=== PATIENT | male | born 1975 | race Caucasian/White ===

== ENCOUNTER 2022-12-20 11:58 | Inpatient (IN) | payer OTHER ==
[2022-12-20 12:41] VITALS: BMI 36.4
[2022-12-20] MEDS ORDERED: TRIMETHOBENZAMIDE HCL 200MG/2ML INJ IM ONE (12:43)
[2022-12-20] MEDS ORDERED: NALOXONE HCL 0.4 MG/ML VIAL IM PRN (13:13)
[2022-12-20] MEDS ORDERED: IBUPROFEN 400 MG TABLET (FP) PO PRN (13:13)
[2022-12-20] MEDS ORDERED: NALOXONE HCL (KLOXXADO) 8 MG SPRAY NS PRN (13:13)
[2022-12-20] MEDS ORDERED: guaiFENesin 600 MG TABLET.ER (FP) PO PRN (13:13)
[2022-12-20] MEDS ORDERED: BENZONATATE 200 MG CAPSULE PO PRN (13:13)
[2022-12-20] MEDS ORDERED: ACETAMINOPHEN 325 MG TABLET (FP) PO PRN (13:13)
[2022-12-20] MEDS ORDERED: DICYCLOMINE HCL 10 MG CAPSULE PO PRN (13:13)
[2022-12-20] MEDS ORDERED: BISMUTH SUBSALICYLATE 524 MG/30 ML PO PRN (13:13)
[2022-12-20] MEDS ORDERED: MAG HYDROX/AL HYDROX/SIMETH 30 ML UNIT-DOSE CUP PO PRN (13:13)
[2022-12-20] MEDS ORDERED: BENZOCAINE/MENTHOL (CHLORASEPTIC ) LOZENGE MM PRN (13:13)
[2022-12-20] MEDS ORDERED: MAGNESIUM HYDROX 2400MG/30ML ORAL SUSPENSION 30 ML CUP PO PRN (13:13)
[2022-12-20] MEDS ORDERED: POLYETHYLENE GLYCOL (HEALTHYLAX) 3350 17 GM PACKET PO PRN (13:13)
[2022-12-20] MEDS ORDERED: IBUPROFEN 600 MG TABLET (FP) PO PRN (13:13)
[2022-12-20] MEDS ORDERED: P-EPHED 60MG/TRIPROLIDI 2.5MG TABLET PO PRN (13:13)
[2022-12-20] MEDS ORDERED: METOPROLOL TARTRATE 25 MG TABLET (FP) PO ONE (13:15)
[2022-12-20] MEDS ORDERED: chlordiazePOXIDE HCL 25 MG CAPSULE PO PRN (13:16)
[2022-12-20] MEDS ORDERED: chlordiazePOXIDE HCL 25 MG CAPSULE PO ONE (13:16)
[2022-12-20] MEDS ORDERED: METOPROLOL TARTRATE 25 MG TABLET (FP) ONE (13:39)
[2022-12-20] MEDS ORDERED: chlordiazePOXIDE HCL 25 MG CAPSULE ONE (13:39)
[2022-12-20] MEDS: chlordiazePOXIDE HCL 25 MG CAPSULE PO SCH (16:58)
[2022-12-21] MEDS: THIAMINE HCL 100 MG TABLET (FP) PO SCH ×2 (04:58→22:03)
[2022-12-21] MEDS: chlordiazePOXIDE HCL 25 MG CAPSULE PO SCH ×5 (04:59→22:02)
[2022-12-21] MEDS ORDERED: chlordiazePOXIDE HCL 25 MG CAPSULE PO ONE (06:13)
[2022-12-21] MEDS: hydrOXYzine PAMOATE 25 MG CAPSULE (FP) PO PRN ×2 (06:30→21:06)
[2022-12-21] MEDS: PRENATAL VITAMINS W/ FOLIC ACID TABLET (FP) PO SCH (10:29)
[2022-12-21 11:28] LABS: HEMATOCRIT 37.6 % (35.4-49); HEMOGLOBIN 12.9 GM/dL (11.7-16.9); MCH 29.5 pg (25.7-33.7); MCHC 34.3 g/dl (32.0-35.9); MEAN PLT VOLUME 7.8 fl (7.5-11.1); PLATELET COUNT 188 10^3/uL (134-434); RBC 4.37 M/mm3 (4.00-5.60); RDW 14.8 % (11.9-15.9); WHITE BLOOD COUNT 6.4 K/mm3 (4.0-10.0)
[2022-12-21 11:34] LABS: POTASSIUM 3.5 mmol/L (3.5-5.1)
[2022-12-21 11:37] LABS: CALCIUM 8.8 mg/dL (8.5-10.1)
[2022-12-21 11:38] LABS: ALBUMIN 3.2 g/dl (3.4-5.0); BLOOD UREA NITROGEN 6.1 mg/dL (7-18)
[2022-12-21 11:41] LABS: CREATININE 0.8 mg/dL (0.55-1.3)
[2022-12-21 11:42] LABS: BILIRUBIN,TOTAL 1.1 mg/dL (0.2-1)
[2022-12-21 11:43] LABS: TOT PROT 6.7 g/dl (6.4-8.2)
[2022-12-21] MEDS: metFORMIN HCL 500 MG TABLET (FP) PO SCH (17:23)
[2022-12-21] MEDS: INSULIN SLIDING SCALE (NOVOLOG) 1 VIAL SQ SCH ×2 (17:27→22:01)
[2022-12-21] MEDS: LOPERAMIDE HCL 2 MG CAPSULE PO PRN (22:02)
[2022-12-21] MEDS: MELATONIN 5 MG TABLETS PO PRN (22:03)
[2022-12-22] MEDS: chlordiazePOXIDE HCL 25 MG CAPSULE PO SCH ×4 (05:42→22:14)
[2022-12-22] MEDS: metFORMIN HCL 500 MG TABLET (FP) PO SCH ×2 (06:34→17:39)
[2022-12-22] MEDS ORDERED: LOSARTAN 50MG/HCTZ 12.5MG 1 TAB PO SCH (10:00)
[2022-12-22] MEDS: lamoTRIgine 100 MG TABLET PO SCH (10:32)
[2022-12-22] MEDS: PRENATAL VITAMINS W/ FOLIC ACID TABLET (FP) PO SCH (10:32)
[2022-12-22] MEDS: hydrOXYzine PAMOATE 25 MG CAPSULE (FP) PO PRN (10:32)
[2022-12-22] MEDS: VENLAFAXINE HCL 50 MG TABLET PO SCH ×2 (10:33→22:13)
[2022-12-22] MEDS: amLODIPine BESYLATE 5 MG TABLET (FP) PO SCH (10:33)
[2022-12-22] MEDS: ONDANSETRON *ODT* 4 MG TABLET SL PRN (10:37)
[2022-12-22] MEDS: LOPERAMIDE HCL 2 MG CAPSULE PO PRN (10:38)
[2022-12-22] MEDS: HYDROCHLOROTHIAZIDE 12.5 MG CAPSULE (FP) PO SCH (10:57)
[2022-12-22] MEDS: LOSARTAN POTASSIUM 50 MG TABLET PO SCH (10:57)
[2022-12-22] MEDS ORDERED: INSULIN (NOVOLOG) ASPART 100 UNITS/ML 10ML VIAL ONE ×2 (11:32→17:16)
[2022-12-22] MEDS: INSULIN SLIDING SCALE (NOVOLOG) 1 VIAL SQ SCH ×3 (11:35→22:15)
[2022-12-22] MEDS: THIAMINE HCL 100 MG TABLET (FP) PO SCH (22:12)
[2022-12-22] MEDS: MELATONIN 5 MG TABLETS PO PRN (22:16)
[2022-12-23] MEDS ORDERED: chlordiazePOXIDE HCL 10 MG CAPSULE PO PRN
[2022-12-23] MEDS: chlordiazePOXIDE HCL 10 MG CAPSULE PO SCH ×4 (05:26→22:24)
[2022-12-23] MEDS: metFORMIN HCL 500 MG TABLET (FP) PO SCH ×2 (06:16→17:10)
[2022-12-23] MEDS: lamoTRIgine 100 MG TABLET PO SCH (10:03)
[2022-12-23] MEDS: HYDROCHLOROTHIAZIDE 12.5 MG CAPSULE (FP) PO SCH (10:03)
[2022-12-23] MEDS: amLODIPine BESYLATE 5 MG TABLET (FP) PO SCH (10:04)
[2022-12-23] MEDS: VENLAFAXINE HCL 50 MG TABLET PO SCH ×2 (10:04→22:23)
[2022-12-23] MEDS: LOSARTAN POTASSIUM 50 MG TABLET PO SCH (10:04)
[2022-12-23] MEDS: PRENATAL VITAMINS W/ FOLIC ACID TABLET (FP) PO SCH (10:05)
[2022-12-23] MEDS: INSULIN SLIDING SCALE (NOVOLOG) 1 VIAL SQ SCH ×3 (11:36→22:30)
[2022-12-23] MEDS ORDERED: INSULIN (NOVOLOG) ASPART 100 UNITS/ML 10ML VIAL ONE ×2 (17:11→23:00)
[2022-12-23] MEDS: MELATONIN 5 MG TABLETS PO PRN (22:23)
[2022-12-23] MEDS: hydrOXYzine PAMOATE 25 MG CAPSULE (FP) PO PRN (22:23)
[2022-12-23] MEDS: THIAMINE HCL 100 MG TABLET (FP) PO SCH (22:23)
[2022-12-24] MEDS: chlordiazePOXIDE HCL 10 MG CAPSULE PO SCH ×2 (05:30→17:29)
[2022-12-24] MEDS: metFORMIN HCL 500 MG TABLET (FP) PO SCH ×2 (06:11→17:29)
[2022-12-24] MEDS ORDERED: INSULIN (NOVOLOG) ASPART 100 UNITS/ML 10ML VIAL ONE ×3 (06:27→16:57)
[2022-12-24] MEDS: INSULIN SLIDING SCALE (NOVOLOG) 1 VIAL SQ SCH ×6 (06:27→22:48)
[2022-12-24] MEDS: lamoTRIgine 100 MG TABLET PO SCH (09:48)
[2022-12-24] MEDS: LOSARTAN POTASSIUM 50 MG TABLET PO SCH (09:48)
[2022-12-24] MEDS: amLODIPine BESYLATE 5 MG TABLET (FP) PO SCH (09:48)
[2022-12-24] MEDS: PRENATAL VITAMINS W/ FOLIC ACID TABLET (FP) PO SCH (09:48)
[2022-12-24] MEDS: HYDROCHLOROTHIAZIDE 12.5 MG CAPSULE (FP) PO SCH (09:49)
[2022-12-24] MEDS: VENLAFAXINE HCL 50 MG TABLET PO SCH ×2 (09:49→22:46)
[2022-12-24] MEDS: ONDANSETRON *ODT* 4 MG TABLET SL PRN (09:51)
[2022-12-24] MEDS: MELATONIN 5 MG TABLETS PO PRN (22:20)
[2022-12-24] MEDS: hydrOXYzine PAMOATE 25 MG CAPSULE (FP) PO PRN (22:20)
[2022-12-24] MEDS: THIAMINE HCL 100 MG TABLET (FP) PO SCH (22:20)
[2022-12-25] MEDS ORDERED: chlordiazePOXIDE HCL 10 MG CAPSULE PO ONE (05:00)
[2022-12-25 05:37] VITALS: BP 129/69; PULSE 89; RESP 18; TEMP 97.7
[2022-12-25] MEDS: metFORMIN HCL 500 MG TABLET (FP) PO SCH (06:01)
[2022-12-25] MEDS: INSULIN SLIDING SCALE (NOVOLOG) 1 VIAL SQ SCH (06:02)
== END 2022-12-25 05:43 | disposition home or self-care (01) | DRG 775 ==
LOC: YASAS 11:58 → Y6N 13:46
PROVIDERS: ADMIT Allergy & Immunology; ATTEND Surgery
PROC: HZ2ZZZZ Detoxification Services for Substance Abuse Treatment (ICD-10-PCS; principal; 2022-12-20)
DX: F10.230 Alcohol dependence with withdrawal, uncomplicated (principal); F41.9 Anxiety disorder, unspecified; F32.A Depression, unspecified; I10 Essential (primary) hypertension; E78.5 Hyperlipidemia, unspecified; E11.9 Type 2 diabetes mellitus without complications; Z79.84 Long term (current) use of oral hypoglycemic drugs; L03.811 Cellulitis of head [any part, except face]; H91.92 Unspecified hearing loss, left ear; Z96.21 Cochlear implant status; Z62.810 Personal history of physical and sexual abuse in childhood
CPT/HCPCS: 36415; 80053; 82962; 83036; 83735; 85027; 86780; C9803-CS; Q0162; U0003; U0005

== ENCOUNTER 2022-12-20 18:28 | Emergency (ER) | payer OTHER ==
[2022-12-20 18:52] VITALS: TEMP 98.3; BMI 36.4
[2022-12-20] MEDS ORDERED: diazePAM CARPU-JECT 10 MG/2 ML DISP.SYRIN IVPUSH ONE ×2 (19:28→19:34)
[2022-12-20] MEDS ORDERED: VANCOMYCIN 1 GM in D5W (PRE-DOCKED) 1,000 MG/250 ML (RESTRICTED TO ID ONLY IVPB ONE (19:29)
[2022-12-20] MEDS ORDERED: PIPERACILLIN/TAZOB 4.5 GM 4.5 GM in DEXTROSE 5%-WATER 100 ML IVPB ONE (19:29)
[2022-12-20] MEDS ORDERED: diazePAM CARPU-JECT 10 MG/2 ML DISP.SYRIN ONE (20:28)
[2022-12-20 21:02] LABS: BASO % 0.8 % (0-2.0); EOS % 0.9 % (0-4.5); HEMATOCRIT 39.9 % (35.4-49); HEMOGLOBIN 13.5 GM/dL (11.7-16.9); LYMPH % 9.1 % (8-40); MCH 29.2 pg (25.7-33.7); MCHC 33.9 g/dl (32.0-35.9); MEAN CELL VOLUME 86.1 fl (80-96); MEAN PLT VOLUME 7.1 fl (7.5-11.1); MONO % 5.9 % (3.8-10.2); NEUT % 83.3 % (42.8-82.8); PLATELET COUNT 214 10^3/uL (134-434); RBC 4.63 M/mm3 (4.00-5.60); RDW 15.2 % (11.9-15.9)
[2022-12-20] MEDS ORDERED: DALBAVANCIN HCL 1,500 MG in DEXTROSE 5%-WATER - 500 ML IVPB ONE (21:03)
[2022-12-20 21:43] LABS: POTASSIUM 3.8 mmol/L (3.5-5.1)
[2022-12-20 21:48] LABS: ALBUMIN 3.8 g/dl (3.4-5.0); BLOOD UREA NITROGEN 7.5 mg/dL (7-18); MAGNESIUM 1.6 mg/dL (1.8-2.4)
[2022-12-20 21:51] LABS: CREATININE 0.8 mg/dL (0.55-1.3)
[2022-12-20 21:52] LABS: BILIRUBIN,TOTAL 0.9 mg/dL (0.2-1); TOT PROT 7.7 g/dl (6.4-8.2)
[2022-12-20] MEDS ORDERED: DALBAVANCIN HCL 500 MG VIAL (RESTRICTED TO ID ONLY) IVPB ONE (21:52)
[2022-12-20] MEDS ORDERED: amLODIPine BESYLATE 5 MG TABLET (FP) PO ONE (22:11)
[2022-12-20] MEDS ORDERED: LOSARTAN 50MG/HCTZ 12.5MG 1 TAB PO ONE (22:13)
[2022-12-20] MEDS ORDERED: MAGNESIUM SULF 50% (8.12 MEQ/2 ML-1 GM VIAL) IVPB ONE (22:47)
[2022-12-20] MEDS ORDERED: VENLAFAXINE HCL 100 MG TABLET PO ONE (23:02)
[2022-12-20] MEDS ORDERED: metFORMIN HCL 500 MG TABLET (FP) PO ONE (23:02)
[2022-12-20] MEDS ORDERED: VENLAFAXINE HCL 75 MG TABLET ONE (23:17)
[2022-12-20] MEDS ORDERED: amLODIPine BESYLATE 5 MG TABLET (FP) ONE (23:17)
[2022-12-20] MEDS ORDERED: lamoTRIgine 100 MG TABLET ONE (23:17)
[2022-12-20] MEDS ORDERED: MAGNESIUM SULFATE IN WATER 2 GM/50 ML IVPB IVPB ONE (23:18)
[2022-12-20] MEDS ORDERED: metFORMIN HCL 500 MG TABLET (FP) ONE (23:26)
[2022-12-21 00:18] VITALS: RESP 20
[2022-12-21] MEDS ORDERED: diazePAM CARPU-JECT 10 MG/2 ML DISP.SYRIN ONE ×2 (00:19→00:26)
[2022-12-21] MEDS ORDERED: ONDANSETRON 4 MG/2 ML VIAL ONE (00:26)
[2022-12-21] MEDS ORDERED: diazePAM CARPU-JECT 10 MG/2 ML DISP.SYRIN IVPUSH ONE (00:26)
[2022-12-21] MEDS ORDERED: ONDANSETRON 4 MG/2 ML VIAL IVPUSH ONE (00:26)
[2022-12-21] MEDS: diazePAM CARPU-JECT 10 MG/2 ML DISP.SYRIN IVPUSH ONE ×2 (00:30→00:31)
[2022-12-21 01:28] VITALS: BP 163/102; PULSE 102
== END 2022-12-21 01:56 | disposition home or self-care (01) ==
LOC: JER 18:28
PROC: 3E03329 Introduction of Other Anti-infective into Peripheral Vein, Percutaneous Approach (ICD-10-PCS; principal; 2022-12-20)
PROC: 3E033GC Introduction of Other Therapeutic Substance into Peripheral Vein, Percutaneous Approach (ICD-10-PCS; 2022-12-20)
PROC: 3E033GC Introduction of Other Therapeutic Substance into Peripheral Vein, Percutaneous Approach (ICD-10-PCS; 2022-12-21)
PROC: 3E033GC Introduction of Other Therapeutic Substance into Peripheral Vein, Percutaneous Approach (ICD-10-PCS; 2022-12-21)
PROC: 3E033GC Introduction of Other Therapeutic Substance into Peripheral Vein, Percutaneous Approach (ICD-10-PCS; 2022-12-21)
DX: T85.79XA Infection and inflammatory reaction due to other internal prosthetic devices, implants and grafts, initial encounter (principal); T85.848A Pain due to other internal prosthetic devices, implants and grafts, initial encounter; L53.9 Erythematous condition, unspecified; L03.90 Cellulitis, unspecified; F10.20 Alcohol dependence, uncomplicated; R51.9 Headache, unspecified; Z20.822 Contact with and (suspected) exposure to COVID-19
CPT/HCPCS: 36415; 70460-TC; 80053; 83735; 85025; 87040; 99285-25; C9803-CS; J0875; Q9967; U0003; U0005